=== PATIENT | female | born 1980 | race Two or more races ===

== ENCOUNTER 2022-12-10 10:17 | Outpatient (CLI) | payer OTHER, SELFPAY ==
--- NOTE | ~2022-12-10 | MM_ITS ---
EXAMINATION: MM screening jia BI w marycruz HISTORY: Screening mammogram TECHNIQUE: Craniocaudal and mediolateral oblique 3-D tomosynthesis images were obtained and synthetic 2-D images were generated. CAD analysis was submitted and interpreted. COMPARISON: No prior mammogram is available for comparison at this institution. BREAST PARENCHYMAL COMPOSITION: There are scattered areas of fibroglandular density. FINDINGS: There is no evidence of suspicious mass, calcification, or architectural distortion to sugg est malignancy in either breast. There has been no suspicious interval change. IMPRESSION: 1. No mammographic evidence of malignancy. 2. Recommend routine screening mammography in one year. 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
== END 2022-12-10 10:18 | disposition home or self-care (01) ==
LOC: CHSIMG 10:21
PROVIDERS: PCP Physician Assistant; Visit Provider Physician Assistant
DX: Z12.31 Encounter for screening mammogram for malignant neoplasm of breast (principal)
CPT/HCPCS: 77063; 77067

== ENCOUNTER 2023-12-14 08:00 | Outpatient (CLI) | payer OTHER, SELFPAY ==
--- NOTE | ~2023-12-14 | MM_ITS ---
EXAMINATION: MM screening jia BI w marycruz HISTORY: Screening TECHNIQUE: Craniocaudal and mediolateral oblique 3-D tomosynthesis images were obtained and synthetic 2-D images were generated. CAD analysis was submitted and interpreted. COMPARISON: 12/10/2022 BREAST PARENCHYMAL COMPOSITION: Breast composed of scattered areas of fibroglandular density FINDINGS: There is no evidence of suspicious mass, calcification, or architectural distortion to sugg est malignancy in either breast. There has been no suspicious interval change. IMPRESSION: 1. No mammographic evidence of malignancy. 2. Recommend routine screening mammography in one year. BI-RADS Category 1: Negative Reviewed, dictated and finalized at location A. RENTAL MANAGER
== END 2023-12-14 08:01 | disposition home or self-care (01) ==
LOC: CHSIMG 08:01
PROVIDERS: PCP Physician Assistant; Visit Provider Physician Assistant
DX: Z12.31 Encounter for screening mammogram for malignant neoplasm of breast (principal)
CPT/HCPCS: 77063; 77067

== ENCOUNTER 2024-12-23 09:40 | Outpatient (CLI) | payer OTHER, SELFPAY ==
--- NOTE | ~2024-12-23 | MM_ITS ---
EXAMINATION: MM diagnostic jia BI w marycruz HISTORY: Right mass TECHNIQUE: 3-D tomosynthesis images of the breasts were performed and synthetic 2-D images were gener ated. CAD analysis was submitted and interpreted. COMPARISON: 12/14/2023, 12/10/2022 BREAST PARENCHYMAL COMPOSITION:Not Dense. The breasts are almost entirely fatty FINDINGS: Parenchymal pattern of both breasts is unchanged. No mass lesion or distortion seen. No sandy picious mammographic or calcification. IMPRESSION: No mammographic evidence for malignancy. The area of palpable concern is in the right axilla, and right axillary ultrasound is performed and r eported separately. BI-RADS Category 1: Negative Reviewed, dictated and finalized at location M. NESS AREA DIRECTOR IMPRESSION: No mammographic evidence for malignancy. The area of palpable concern is in the right axilla, and right axillary ultraso und is performed and reported separately. BI-RADS Category 1: Negative
--- NOTE | ~2024-12-23 | US_ITS ---
Ultrasound of the right axilla CLINICAL HISTORY: Palpable lump TECHNIQUE: Sonographic imaging of the right axilla was performed at the area of clinical concern. FINDINGS: No solid or cystic lesion identified. No sonographic abnormality seen in the region scanned . IMPRESSION: No sonographic correlate or abnormality seen in the area of clinical concern. Reviewed, dictated and finalized at location . IR WELDER
== END 2024-12-23 09:41 | disposition home or self-care (01) ==
LOC: CHSIMG 09:42
PROVIDERS: PCP Physician Assistant; Visit Provider Physician Assistant
DX: N63.11 Unspecified lump in the right breast, upper outer quadrant (principal)
CPT/HCPCS: 76882; 77062; 77066; G0279